=== PATIENT | male | born 1945 | race Caucasian/White ===

== ENCOUNTER 2023-06-02 16:52 | Inpatient (IN) | payer OTHER | END 2023-06-05 16:01 | DRG 854 | LOC: ER 16:52 → PCU 19:49 → SURS 06-03 16:56 | PROVIDERS: ADMIT Internal Medicine | PROC: 047J34Z Dilation of Left External Iliac Artery with Drug-eluting Intraluminal Device, Percutaneous Approach (ICD-10-PCS; principal; 2023-06-02) | PROC: 047L3ZZ Dilation of Left Femoral Artery, Percutaneous Approach (ICD-10-PCS; 2023-06-02) | PROC: B41D1ZZ Fluoroscopy of Aorta and Bilateral Lower Extremity Arteries using Low Osmolar Contrast (ICD-10-PCS; 2023-06-02) | PROC: 0Y6J0Z1 Detachment at Left Lower Leg, High, Open Approach (ICD-10-PCS; 2023-06-03) | PROC: 3E03329 Introduction of Other Anti-infective into Peripheral Vein, Percutaneous Approach (ICD-10-PCS; 2023-06-03) | DX: A41.9 Sepsis, unspecified organism (principal); E11.52 Type 2 diabetes mellitus with diabetic peripheral angiopathy with gangrene; E87.1 Hypo-osmolality and hyponatremia; L03.116 Cellulitis of left lower limb; I70.262 Atherosclerosis of native arteries of extremities with gangrene, left leg; F43.10 Post-traumatic stress disorder, unspecified; E86.1 Hypovolemia; I10 Essential (primary) hypertension; E11.65 Type 2 diabetes mellitus with hyperglycemia; Z20.822 Contact with and (suspected) exposure to COVID-19; E83.39 Other disorders of phosphorus metabolism; E83.42 Hypomagnesemia; E87.6 Hypokalemia; Z87.891 Personal history of nicotine dependence; Z98.890 Other specified postprocedural states; Z86.79 Personal history of other diseases of the circulatory system; Z79.899 Other long term (current) drug therapy; Z79.4 Long term (current) use of insulin; Z71.6 Tobacco abuse counseling ==

== ENCOUNTER 2023-06-25 18:03 | Inpatient (IN) | payer OTHER ==
[~2023-06-25] VITALS: Ht 165.1 cm; Wt 76.7 kg
[2023-06-25 19:40] LABS: BASOPHILS ABSOLUTE AUTO 0.08 K/mm3 (0.00-0.23); BASOPHILS PERCENT AUTO 1 % (0-2); EOSINOPHILS ABSOLUTE AUTO 0.37 K/mm3 (0.00-0.68); EOSINOPHILS PERCENT AUTO 3 % (0-6); Hematocrit 37.6 % (37.0-53.0); Hemoglobin 12.9 g/dL (13.5-17.5); IMMATURE GRAN ABSOLUTE AUTO 0.03 K/mm3 (0.00-0.10); IMMATURE GRAN PERCENT AUTO 0 % (0-1); LYMPHOCYTES ABSOLUTE AUTO 1.33 K/mm3 (0.84-5.20); LYMPHOCYTES PERCENT AUTO 11 % (21-46); MONOCYTES ABSOLUTE AUTO 0.79 K/mm3 (0.16-1.47); MONOCYTES PERCENT AUTO 7 % (4-13); Mean Corpuscular HGB 29.9 pg (26.0-34.0); Mean Corpuscular HGB Conc 34.3 g/dL (31.5-36.5); Mean Corpuscular Volume 87 fL (80-100); Mean Platelet Volume 8.6 fL (9.1-12.4); NEUTROPHILS ABSOLUTE AUTO 9.28 K/mm3 (1.96-9.15); NEUTROPHILS PERCENT AUTO 78 % (41-73); Platelet Count 363 K/mm3 (150-400); RDW Coefficient Variation 13.7 % (11.7-14.2); Red Blood Cell Count 4.31 M/mm3 (4.30-5.90); White Blood Cell Count 11.88 K/mm3 (4.00-11.30)
[2023-06-25 19:59] LABS: Albumin, Blood 2.8 g/dL (3.4-5.0); Albumin/Globulin Ratio 0.6 (0.8-1.8); Bilirubin, Total 0.3 mg/dL (0.1-1.0); Bun/Creatinine Ratio 19.8 (12.0-20.0); Calcium, Blood 9.2 mg/dL (8.5-10.1); Creatinine, Blood 0.76 mg/dL (0.60-1.20); Globulin, Blood 4.6 g/dL (2.2-4.0); Potassium, Blood 4.1 mmol/L (3.5-5.5); Total Protein, Blood 7.4 g/dL (6.4-8.2)
--- NOTE | 2023-06-25 21:31 | NUR ---
PT CHART REVEIWED FOR ADMISSION
[2023-06-25 22:28] VITALS: BP 170/85
[2023-06-26 04:30] VITALS: BP 177/70
[2023-06-26 05:25] LABS: BASOPHILS ABSOLUTE AUTO 0.08 K/mm3 (0.00-0.23); BASOPHILS PERCENT AUTO 1 % (0-2); EOSINOPHILS ABSOLUTE AUTO 0.46 K/mm3 (0.00-0.68); EOSINOPHILS PERCENT AUTO 5 % (0-6); Hematocrit 34.9 % (37.0-53.0); IMMATURE GRAN ABSOLUTE AUTO 0.03 K/mm3 (0.00-0.10); IMMATURE GRAN PERCENT AUTO 0 % (0-1); LYMPHOCYTES ABSOLUTE AUTO 2.02 K/mm3 (0.84-5.20); LYMPHOCYTES PERCENT AUTO 21 % (21-46); MONOCYTES ABSOLUTE AUTO 0.74 K/mm3 (0.16-1.47); MONOCYTES PERCENT AUTO 8 % (4-13); Mean Corpuscular HGB 29.6 pg (26.0-34.0); Mean Corpuscular HGB Conc 34.4 g/dL (31.5-36.5); Mean Corpuscular Volume 86 fL (80-100); Mean Platelet Volume 8.9 fL (9.1-12.4); NEUTROPHILS ABSOLUTE AUTO 6.13 K/mm3 (1.96-9.15); NEUTROPHILS PERCENT AUTO 65 % (41-73); Platelet Count 319 K/mm3 (150-400); RDW Coefficient Variation 13.6 % (11.7-14.2); RDW Standard Deviation 42.5 fL (35.1-46.3); Red Blood Cell Count 4.06 M/mm3 (4.30-5.90); White Blood Cell Count 9.46 K/mm3 (4.00-11.30)
--- NOTE | 2023-06-26 05:29 | NUR ---
PT ADMITTED AFTER 2100 LAST NIGHT, AO, SBA FOR TRANSFERS, USES URINAL INDEPENDENTLY, VSS ON RA. LLE BKA AND CELLULITIS, PENDING I&D TODAY. SKIN IS CLEAR, 2 RN SKIN CHECK WITH MARIANA Zambrano REPORTS HIGH PAIN IN LEG WITH MODERATE PAIN CONTROL FROM 5 MG OXY. UNEVENTFUL NIGHT. NPO SINCE MIDNIGHT. FIRE SAFETY REVIEWED.
[2023-06-26 06:03] LABS: Albumin, Blood 2.5 g/dL (3.4-5.0); Albumin/Globulin Ratio 0.6 (0.8-1.8); Bilirubin, Total 0.4 mg/dL (0.1-1.0); Bun/Creatinine Ratio 19.3 (12.0-20.0); Calcium, Blood 8.6 mg/dL (8.5-10.1); Creatinine, Blood 0.72 mg/dL (0.60-1.20); Globulin, Blood 4.3 g/dL (2.2-4.0); Potassium, Blood 3.8 mmol/L (3.5-5.5); Total Protein, Blood 6.8 g/dL (6.4-8.2)
[2023-06-26 07:40] VITALS: BP 161/73
--- NOTE | 2023-06-26 07:45 | NUR ---
CONTACTED DR. DAILY REED VIA ANSWERING SERVICE TO INFORM REGARDING CONSULTATION ORDER. CALLED AT 07:43 ON 06/26.
--- NOTE | 2023-06-26 13:25 | NUR ---
Per Dr. Varela, surgery cancelled. Lunch tray provided.
[2023-06-26 16:03] VITALS: BP 143/72
--- NOTE | 2023-06-26 16:58 | NUR ---
SHIFT SUMMARY Pt remains A&Ox3 this shift. Able to position self in bed/chair. Min ast needed to transfer to chair from bed. LLE pain managed with po meds. Dressing to stump CDI. Resp even nonlabored on RA. Voiding per urinal. Continue with IV antibx. Will continue to monitor.
[2023-06-26 19:19] VITALS: BP 143/81
--- NOTE | 2023-06-27 03:59 | NUR ---
SHIFT SUMMARY PT A&O X3, PLEASANT AND COOPERATIVE WITH CARE. NO ACUTE CHANGES OVERNIGHT. USES WHEELCHAIR TO MOVE FROM BED TO CHAIR. USES URINAL INDEPENDENTLY. DRESSING TO STUMP IS C/D/I. PT COMPLAINING ABOUT ONLY RECEIVING 1 5MG TAB OF OXYCODONE, STATES THAT HE TAKES 2 AT HOME. SLEPT MOST OF THE NIGHT. BED KEPT IN LOWEST POSTITION, CALL LIGHT WITHIN REACH, CALLS APPROPRIATELY.
[2023-06-27 04:09] VITALS: BP 150/84
[2023-06-27 07:58] VITALS: BP 176/89
[2023-06-27 12:05] LABS: Influenza A, PCR NEGATIVE (NEGATIVE); Influenza B, PCR NEGATIVE (NEGATIVE); Resp Syncytial Virus, PCR NEGATIVE (NEGATIVE); SARS-Cov-2 (COVID-19) PCR, MMC NEGATIVE (NEGATIVE)
[2023-06-27 12:19] VITALS: BP 143/71
--- NOTE | 2023-06-27 15:38 | NUR ---
DISCHARGE SUMMARY PATIENT WITH PAIN TODAY, MEDICATED PER EMAR. AMITA REMOVED BEDSIDE BY DR REED, DR ROONEY ORDERED FENTAL 25MCG IV AT 1455 AND OKAY TO GIVE OXYCODONE 10MG NOW DUE TO PATIENT PAIN LEVEL. PATIENT PICKED UP BY TRANSPORT AT 1515 VIA WHEELCHAIR TRANSPORT TO [facility]. PHONE CALL PLACED TO [facility], NO ANSWER
[2023-06-27] MEDS ORDERED: ATOR40TA PO (17:00)
[2023-06-27] MEDS ORDERED: GABA300 PO (17:00)
[2023-06-27] MEDS ORDERED: ASPI81CH PO (17:00)
[2023-06-27] MEDS ORDERED: INSULIN GL100 UNIT/3 SC (17:01)
[2023-06-27] MEDS ORDERED: LACT PO (17:02)
[2023-06-27] MEDS ORDERED: HUMALOG KW100 UNIT/1 SC (17:02)
[2023-06-27] MEDS ORDERED: OXYC5 PO (17:03)
[2023-06-27] MEDS ORDERED: SULTRIDS PO (17:03)
== END 2023-06-27 15:15 | DRG 564 ==
LOC: ER 18:03 → MEDS 22:00
PROVIDERS: Internal Medicine; Nurse Practitioner Acute Care; Student in an Organized Health Care Education/Training Program; ADMIT Internal Medicine
DX: T87.43 Infection of amputation stump, right lower extremity (principal); A41.9 Sepsis, unspecified organism; R65.20 Severe sepsis without septic shock; L03.116 Cellulitis of left lower limb; E11.51 Type 2 diabetes mellitus with diabetic peripheral angiopathy without gangrene; J44.9 Chronic obstructive pulmonary disease, unspecified; R00.0 Tachycardia, unspecified; Z20.822 Contact with and (suspected) exposure to COVID-19; Z86.79 Personal history of other diseases of the circulatory system; Z89.512 Acquired absence of left leg below knee; Z87.891 Personal history of nicotine dependence; Z79.2 Long term (current) use of antibiotics; Z79.4 Long term (current) use of insulin; Z79.82 Long term (current) use of aspirin; Z79.891 Long term (current) use of opiate analgesic; Z99.3 Dependence on wheelchair; Z79.899 Other long term (current) drug therapy
CPT/HCPCS: 0241U; 36415; 73701; 80053; 80202; 82947; 83605; 85025; 93005; 93010; 96365-59; 96367; 97112; 97162; 97530; 99285-25; A9270; J0696; J1650; J1815; J2543; J3010; J3370; J7030; J7050; Q9967

== ENCOUNTER 2023-07-23 12:50 | Inpatient (IN) | payer OTHER ==
[~2023-07-23] VITALS: Ht 165.1 cm; Wt 75.2 kg
[~2023-07-23 12:50] MED LIST: ASPI81CH PO; ATOR40TA PO; GABA300 PO; HUMALOG KW100 UNIT/1 SC; INSULIN GL100 UNIT/3 SC; LACT PO; OXYC5 PO; SULTRIDS PO
[2023-07-23 14:40] LABS: BASOPHILS ABSOLUTE AUTO 0.09 K/mm3 (0.00-0.23); BASOPHILS PERCENT AUTO 1 % (0-2); EOSINOPHILS ABSOLUTE AUTO 0.28 K/mm3 (0.00-0.68); EOSINOPHILS PERCENT AUTO 2 % (0-6); Hematocrit 44.3 % (37.0-53.0); Hemoglobin 14.8 g/dL (13.5-17.5); IMMATURE GRAN ABSOLUTE AUTO 0.08 K/mm3 (0.00-0.10); IMMATURE GRAN PERCENT AUTO 1 % (0-1); LYMPHOCYTES ABSOLUTE AUTO 1.85 K/mm3 (0.84-5.20); LYMPHOCYTES PERCENT AUTO 15 % (21-46); MONOCYTES ABSOLUTE AUTO 0.85 K/mm3 (0.16-1.47); MONOCYTES PERCENT AUTO 7 % (4-13); Mean Corpuscular HGB 29.6 pg (26.0-34.0); Mean Corpuscular HGB Conc 33.4 g/dL (31.5-36.5); Mean Corpuscular Volume 89 fL (80-100); NEUTROPHILS ABSOLUTE AUTO 9.49 K/mm3 (1.96-9.15); NEUTROPHILS PERCENT AUTO 75 % (41-73); Platelet Count 300 K/mm3 (150-400); RDW Coefficient Variation 13.7 % (11.7-14.2); RDW Standard Deviation 44.3 fL (35.1-46.3); White Blood Cell Count 12.64 K/mm3 (4.00-11.30)
[2023-07-23 14:57] LABS: Albumin, Blood 3.4 g/dL (3.4-5.0); Albumin/Globulin Ratio 0.7 (0.8-1.8); Bilirubin, Total 0.5 mg/dL (0.1-1.0); Bun/Creatinine Ratio 17.7 (12.0-20.0); Calcium, Blood 9.3 mg/dL (8.5-10.1); Creatinine, Blood 0.79 mg/dL (0.60-1.20); Globulin, Blood 4.6 g/dL (2.2-4.0)
[2023-07-23 20:21] VITALS: BP 165/85
[2023-07-23 21:39] VITALS: BP 133/68
--- NOTE | 2023-07-24 01:55 | NUR ---
NEW ORDERS. PT EXPERIENCING BREAKTHROUGH PAIN AFTER PERCOCET. T/C PLACED TO DR. RODRIGUEZ AND NEW ORDERS FOR FENTANYL 25MCG IV Q2PRN RECEIVED.
[2023-07-24 04:43] LABS: BASOPHILS PERCENT AUTO 1 % (0-2); EOSINOPHILS ABSOLUTE AUTO 0.35 K/mm3 (0.00-0.68); EOSINOPHILS PERCENT AUTO 4 % (0-6); Hematocrit 37.6 % (37.0-53.0); Hemoglobin 12.9 g/dL (13.5-17.5); IMMATURE GRAN ABSOLUTE AUTO 0.05 K/mm3 (0.00-0.10); IMMATURE GRAN PERCENT AUTO 1 % (0-1); LYMPHOCYTES ABSOLUTE AUTO 2.34 K/mm3 (0.84-5.20); LYMPHOCYTES PERCENT AUTO 24 % (21-46); MONOCYTES PERCENT AUTO 9 % (4-13); Mean Corpuscular HGB Conc 34.3 g/dL (31.5-36.5); Mean Corpuscular Volume 87 fL (80-100); Mean Platelet Volume 9.2 fL (9.1-12.4); NEUTROPHILS ABSOLUTE AUTO 6.17 K/mm3 (1.96-9.15); NEUTROPHILS PERCENT AUTO 62 % (41-73); Platelet Count 261 K/mm3 (150-400); RDW Coefficient Variation 13.6 % (11.7-14.2); RDW Standard Deviation 43.6 fL (35.1-46.3); White Blood Cell Count 9.91 K/mm3 (4.00-11.30)
[2023-07-24 04:48] LABS: International Normalized Ratio 1.03; Prothrombin Time Results 10.8 Sec (9.7-11.5)
[2023-07-24 04:49] LABS: Bun/Creatinine Ratio 20.9 (12.0-20.0); Calcium, Blood 8.6 mg/dL (8.5-10.1); Creatinine, Blood 0.81 mg/dL (0.60-1.20); Magnesium, Blood 1.5 mg/dL (1.6-2.4); Potassium, Blood 3.7 mmol/L (3.5-5.5)
[2023-07-24 04:50] VITALS: BP 139/69
--- NOTE | 2023-07-24 06:20 | NUR ---
SHIFT SUMMARY NOC. PT ADMITTED TO SURG FLOOR AT 2013 ON 07/23/2023 FROM THE ER. PT ORIENTED TO ROOM AT THAT TIME AND BLOOD CONSENT AND CONTACT SHEET COMPLETED. PT EXPERIENCING PAIN IN LEFT STUMP FROM BKA INFECTION. PT MEDICATED FOR PAIN WITH MINIMAL TO NO RELIEF. NEW ORDERS RECEIVED AND IMPROVED PAIN NOTED. PT RESTED WITH EYES CLOSED DURING THE NIGHT WITH CALL LIGHT IN REACH. PT USING URINAL AT BEDSIDE.
[2023-07-24 07:29] VITALS: BP 143/77
--- NOTE | 2023-07-24 12:16 | NUR ---
"Spiritual Care | Pt. request Pt. is awake in bed and welcomes my visit. Pt. is pleasant. Facilitate a life review. During visit Dr. Vallecillo arrived and welcomed this flat cutter to stay while he looked at the Pts. wound and presented prognosis. Pt. initially displays evidence of being overwhelmed, but eventually verbalized agreement with the plan of care. After Dr. Vallecillo left the flat cutter gave support and affirmed the Pt. understood the plan of care. Facilitated more of a life review and prayed with the Pt. Pt. verbalized gratitude for the spiritual care visit."
--- NOTE | 2023-07-24 12:22 | NUR ---
"Spiritual Care | Pt. request Pt. is awke in bed and is eating lunch when he welcomes my visit. Pt. is pleasant. Pt. does display ocassional memory lapses, but otherwise displays evidence of engagement and awareness. Facilitated a life review and considered matters of roque and belief. Listened with interest and a calming presence. Prayed with Pt. Pt. verbalized gratitude for the spiritual care visit."
[2023-07-24 14:31] VITALS: BP 133/75
--- NOTE | 2023-07-24 15:36 | NUR ---
[facility] CONSULT [facility], PER THEIR OFFICE THEY ARE NOT IN THE OFFICE THURSDAY THROUGH THURSDAY. WILL PLACE CONSULT ON THURSDAY.
--- NOTE | 2023-07-24 18:51 | NUR ---
SHIFT SUMMARY S/P L BKA STUMP INFECTION, A/OX4, VSS, TOLERATING PO, PAIN MANAGED PER EMAR, PLAN TO GO TO SURGERY TOMORROW FOR INFECTION. NO ACUTE EVENTS THIS SHIFT, CALL LIGHT IN REACH.
[2023-07-24 19:36] VITALS: BP 154/72
[2023-07-25] VITALS (15 sets, daily range): BP systolic 120–165; BP diastolic 59–90
[2023-07-25 04:16] LABS: Hematocrit 38.5 % (37.0-53.0); Hemoglobin 13.1 g/dL (13.5-17.5); Mean Corpuscular HGB 30.2 pg (26.0-34.0); Mean Corpuscular Volume 89 fL (80-100); Platelet Count 264 K/mm3 (150-400); RDW Coefficient Variation 13.5 % (11.7-14.2); RDW Standard Deviation 44.1 fL (35.1-46.3); Red Blood Cell Count 4.34 M/mm3 (4.30-5.90); White Blood Cell Count 11.49 K/mm3 (4.00-11.30)
[2023-07-25 05:09] LABS: Calcium, Blood 8.6 mg/dL (8.5-10.1); Creatinine, Blood 0.88 mg/dL (0.60-1.20); Magnesium, Blood 1.8 mg/dL (1.6-2.4); Potassium, Blood 4.1 mmol/L (3.5-5.5)
--- NOTE | 2023-07-25 07:45 | NUR ---
SUMMARY PT PENDING OR TODAY. REMAINS NPO.
--- NOTE | 2023-07-25 10:43 | NUR ---
PRE-OP NOTE PT TO PACU VIA HOSPITAL BED BY JADON BONE. PT A&OX4, BREATHING RA, NO COMPLAINTS. History, Chart, Medications and Allergies reviewed before start of procedure.Patient confirms NPO status and agrees with scheduled surgery. Pre-Op teaching done. Pt verbalizes understanding. PREVIOUS BKA SITE SLIGHTLY BLOOD STAINED. PT SEEN AND CONSENTED BY ANESTHESIA AND SURGEON.
--- NOTE | 2023-07-25 11:16 | NUR ---
07/25/23 1116 Xiomara Kolb PT ON SCHEDULED ANTIBIOTICS PRIOR TO ARRIVAL TO OR.
--- NOTE | 2023-07-25 18:24 | NUR ---
SHIFT SUMMARY PT A&OX4, VSS/RA/CBGS ACHS, VOIDING/URINAL, PAIN MANAGED, REPOSITIONS SELF, YOEL PO, IVF 100 MLS/HR AND ABX PER EMAR. S/P LLE BKA I&D, WOUND VAC, ELEVATED. WILL REPORT TO ONCOMING NOC RN.
[2023-07-26 02:51] VITALS: BP 134/75
[2023-07-26 03:52] LABS: Hematocrit 37.3 % (37.0-53.0); Hemoglobin 12.8 g/dL (13.5-17.5)
[2023-07-26 07:12] VITALS: BP 140/75
--- NOTE | 2023-07-26 08:35 | NUR ---
SUMMARY SLEPT OFF AND ON,WOUND VAC INTACT WITH SX.PERCOCET@ EFFECTIVE FOR PAIN CONTROL.
[2023-07-26 15:25] VITALS: BP 132/55
--- NOTE | 2023-07-26 15:43 | NUR ---
SHIFT SUMMARY PT A&OX4, VSS/RA/CBGS ACHS, VOIDING/URINAL, PAIN MANAGED, REPOSITIONS SELF, YOEL PO, IVF 100 MLS/HR AND ABX PER EMAR. POD1 LLE BKA I&D, WOUND VAC, ELEVATED. WILL REPORT TO ONCOMING NOC RN.
[2023-07-26 19:22] VITALS: BP 133/63
[2023-07-27] VITALS (20 sets, daily range): BP systolic 80–173; BP diastolic 58–88
--- NOTE | 2023-07-27 04:08 | NUR ---
SHIFT SUMMARY POD 2 I&D L CARLOS SO PT A&O X4, CALLS APPROPRIATLEY. PT HAS BEEN NPO SINCE MIDNIGHT. HAS WOUND VAC IN PLACE, SUCTION AT 120. SEROSANGINEOUS FLUID DRAINING. PT ENDORSES SAHRP BURNING PAIN IN LLE, MEDICATED PER EMAR. VOIDING. VSS. NO OTHER CONCERNS AT THIS TIME. CALL LIGHT WITHIN REACH.
[2023-07-27 12:37] LABS: Creatinine, Blood 0.86 mg/dL (0.60-1.20)
[2023-07-27 12:38] LABS: Vancomycin, Trough 22.3 ug/mL (5.0-10.0)
--- NOTE | 2023-07-27 17:43 | NUR ---
SHIFT SUMMARY POD0 I&D #2, A/OX4, VSS, TOLERATING PO, ABLE TO STAND PIVOT TO BSC OR CHAIR, DISCUSSED PERIPHERAL ANGIO TENTATIVELY PLANNED FOR TOMORROW, WILL MAKE HIM NPO AT MIDNIGHT FOR THAT PROCEEDURE. PAIN WELL MANAGED PER EMAR. NO ACUTE EVENTS THIS SHIFT, CALL LIGHT IN REACH.
[2023-07-28 00:26] VITALS: BP 111/54
[2023-07-28 04:37] VITALS: BP 154/76
[2023-07-28 05:02] LABS: Hematocrit 36.1 % (37.0-53.0); Hemoglobin 12.1 g/dL (13.5-17.5); Mean Corpuscular HGB 29.6 pg (26.0-34.0); Mean Corpuscular HGB Conc 33.5 g/dL (31.5-36.5); Mean Corpuscular Volume 88 fL (80-100); Mean Platelet Volume 9.4 fL (9.1-12.4); Platelet Count 242 K/mm3 (150-400); RDW Coefficient Variation 13.8 % (11.7-14.2); RDW Standard Deviation 44.5 fL (35.1-46.3); Red Blood Cell Count 4.09 M/mm3 (4.30-5.90); White Blood Cell Count 12.77 K/mm3 (4.00-11.30)
[2023-07-28 06:05] LABS: Bun/Creatinine Ratio 22.9 (12.0-20.0); Calcium, Blood 8.5 mg/dL (8.5-10.1); Creatinine, Blood 0.87 mg/dL (0.60-1.20); Magnesium, Blood 1.7 mg/dL (1.6-2.4); Potassium, Blood 3.8 mmol/L (3.5-5.5)
--- NOTE | 2023-07-28 06:46 | NUR ---
POD 1 S/P REPEAT I&D OF LEFT STUMP. PT VSS T/O NIGHT. WOUND VAC W/SCANT SS DRNG; FOAM COMPRESSED, SEAL AND SX INTACT. PAIN MGD PER EMAR AND W/ICE PACKS+ELEVATION. PT NPO POST MIDNIGHT FOR PLAN FOR ANGIO TODAY.
[2023-07-28 07:23] VITALS: BP 178/77
--- NOTE | 2023-07-28 10:17 | NUR ---
MORNING MEDS 0900 MEDS HELD DUE TO PATIENT BEING NPO FOR PROCEDURE TODAY. PT C/O INCREASED PAIN T/O THE NIGHT AND THIS AM, IV PAIN MEDS GIVEN WITH NO EFFECT, PER ATTENDING MD IV PAIN MED DOSE REPEATED ONE TIME WITH STILL MINIMAL EFFECT. PT REPORTS SPASMS IN LLE, PO PAIN MED AND SCEDULED BACLOFEN GIVEN WITH SMALL SIP OF WATER.
--- NOTE | 2023-07-28 11:42 | NUR ---
Pt. is awake and sitting up in bed when he welcomes my visit. Pt. is unsettled by the extended periods of being NPO waiting for procedures. Listen with empathy and a calming presence. Facilitate a lengthy discussion regarding both the Pts. health and roque journey. Pt. displays evidence of being comforted by the conversation as well as the presence of someone who will listen. Consider matters of roque and belief. Prayed with pt. Pt. displays evidene of a lightened mood and verbalizes gratitude for the spiritual care visit.
[2023-07-28 14:23] VITALS: BP 167/72
[2023-07-28 19:31] VITALS: BP 109/61
--- NOTE | 2023-07-28 19:54 | NUR ---
SHIFT SUMMARY POD1 L BKA I&D, A/OX4, VSS, TOLERATING PO, PAIN MANAGED, ANGIOGRAM ON HOLD DUE TO RISKS. NO ACUTE EVENTS THIS SHIFT, CALL LIGHT IN REACH.
[2023-07-29 03:16] VITALS: BP 147/78
--- NOTE | 2023-07-29 05:11 | NUR ---
POD 2 OF REPEAT I&D OF LEFT BKA STUMP. PER PROVIDER, PT WILL NOT BE TAKEN TO HAVE ANY FURTHER PROCUDURE PERFORMED AT THIS TIME. PT'S WOUND VAC HAS SUCTION WITH SCANT DRAINAGE. NO ACUTE EVENTS DURING THIS SHIFT. PT COMPLAINING OF SHARP PAIN WITH MOVEMENT OF HIS LEFT BKA. PO/IV PAIN MEDICATION ADMINISTERED THIS SHIFT. PT REPOSITIONING HIMSELF WITH MINIMAL ASSISTANCE FROM STAFF. PLAN FOR WOUND CARE CONSULT TODAY ALONG WITH WOUND VAC CHANGES EVERY THURSDAY, THURSDAY, AND THURSDAY.
[2023-07-29 07:23] VITALS: BP 160/77
[2023-07-29 12:57] LABS: Creatinine, Blood 0.82 mg/dL (0.60-1.20); Vancomycin, Trough 18.5 ug/mL (5.0-10.0)
--- NOTE | 2023-07-29 14:12 | NUR ---
DR. REED AND THIS NURSE JUST CHANGED PATIENTS WOUND VAC. PATIENT TOLERATED IT WELL. WOUND VAC FOAM IS COMPRESSED AND DELIEVERING THERAPY. PATIENT IS LAYING IN BED WITH CALL LIGHT IN REACH AND LEFT STUMP ELEVATED ON PILLOWS.
[2023-07-29 14:14] LABS: SARS-Cov-2 (COVID-19) PCR, MMC NEGATIVE (NEGATIVE)
[2023-07-29 14:23] VITALS: BP 111/63
--- NOTE | 2023-07-29 14:42 | NUR ---
DISCHARGE NOTE: PATIENT IS GOING TO BE TRANSPORTED BACK TO [facility] LATER TONIGHT AT 1800. THIS NURSE GAVE REPORT TO THE [facility] LILLIE GONZALEZ WHO AFTER REPORT HAD NO FURTHER QUESTIONS AT THIS TIME. PAIN IS MANAGED WITH PO PAIN MEDS. DR. REED AND THIS NURSE JUST CHANGED HIS WOUND VAC WITH THE BLACK FOAM COMPRESSED AND DELIVERING THERAPY. HE IS TOLERATING PO INTAKE AND IS VOIDING/HAVING BMS. HIS LEFT STUMP IS ELEVATED ON A PILLOW AND IS C/D/I. PATIENT IS LAYING IN BED WITH PERSONAL ITEMS IN THE ROOM GATHERED AWAITING FOR TRANSPORT TO ARRIVE WHICH WILL BE AT 1800 TONIGHT.
--- NOTE | 2023-07-29 18:27 | NUR ---
TRANSPORT ARRIVED AND IS TAKING THE PATIENT IN HIS OWN WHEELCHAIR. PATIENT IS DRESSED AND HAS PERSONAL ITEMS WITH HIM.
== END 2023-07-29 18:27 | DRG 493 ==
LOC: ER 12:50 → SURS 18:49 → ER 07-24 12:30 → SURS 07-29 18:27
PROVIDERS: Internal Medicine; Nurse Practitioner Acute Care; Orthopaedic Surgery; Physician Assistant; ADMIT Internal Medicine
PROC: 0QBH0ZZ Excision of Left Tibia, Open Approach (ICD-10-PCS; principal; 2023-07-27 15:00)
DX: T87.44 Infection of amputation stump, left lower extremity (principal); E11.52 Type 2 diabetes mellitus with diabetic peripheral angiopathy with gangrene; L03.115 Cellulitis of right lower limb; J44.9 Chronic obstructive pulmonary disease, unspecified; Z20.822 Contact with and (suspected) exposure to COVID-19; B95.62 Methicillin resistant Staphylococcus aureus infection as the cause of diseases classified elsewhere; B96.89 Other specified bacterial agents as the cause of diseases classified elsewhere; M19.90 Unspecified osteoarthritis, unspecified site; I11.0 Hypertensive heart disease with heart failure; I50.9 Heart failure, unspecified; E11.65 Type 2 diabetes mellitus with hyperglycemia; Z79.82 Long term (current) use of aspirin; Z79.4 Long term (current) use of insulin; Z79.891 Long term (current) use of opiate analgesic; Z79.899 Other long term (current) drug therapy; Z89.512 Acquired absence of left leg below knee; Z87.891 Personal history of nicotine dependence; Z98.890 Other specified postprocedural states
CPT/HCPCS: 36415; 80048; 80053; 80202; 82565; 82947; 83735; 85014; 85018; 85025; 85027; 85610; 87070; 87071; 87075; 87077; 87186; 87205; 99284; A9270; J0696; J1100; J1170; J1815; J1885; J2371; J2405; J2704; J2765; J3010; J3370; J3475; J7030; J7050; J7120; U0002

== ENCOUNTER 2025-05-02 12:51 | Day surgery (SDC) | payer OTHER ==
[~2025-05-02] VITALS: Ht 165.1 cm; Wt 81.6 kg
[~2025-05-02 12:51] MED LIST changes: +Balanced Salt Epinephrine Irrigation Solution 500 mL IR SCH; +Moxifloxacin HCL 0.5 MG/0.1 ML 0.4MLSYR RIGHTEYE SCH; +NS 500 ML IV ONE; +Ondansetron 4 MG SoluTab MM PRN; +PHENYLEPHRINE\\TROPICAMIDE\\TETRACAINE OPHTHALMIC DILATING SOLN RIGHTEYE PRN; +Povidone-Iodine 450 DROP/30 ML Solution ONE; +Povidone-Iodine 450 DROP/30 ML Solution RIGHTEYE SCH; +Tetracaine HCl/Pf 0.5% Opth Soln 4 ml ONE
[2025-05-02] MEDS ORDERED: FERSU300 PO (13:43)
[2025-05-02] MEDS ORDERED: TAMS.4ER PO (13:44)
[2025-05-02] MEDS ORDERED: JARDIANCE10 MG PO (13:44)
[2025-05-02] MEDS ORDERED: FURO20 PO (13:44)
[2025-05-02] MEDS ORDERED: METF500 PO (13:45)
[2025-05-02] MEDS ORDERED: TERB250 PO (13:45)
[2025-05-02] MEDS ORDERED: DULO60 PO (13:45)
[2025-05-02] MEDS ORDERED: MAGNESIUM OXID500 MG PO (13:46)
[2025-05-02] MEDS ORDERED: ASCO500 PO (13:46)
[2025-05-02] MEDS ORDERED: BACL10 PO (13:46)
[2025-05-02] MEDS ORDERED: PREG75 PO (13:47)
[2025-05-02] MEDS ORDERED: Calcium Carbon500 MG (13:47)
[2025-05-02] MEDS ORDERED: ACET325 (13:48)
[2025-05-02] MEDS ORDERED: NS 500 ML IV ONE (14:01)
--- NOTE | 2025-05-02 14:02 | NUR ---
05/02/25 1402 Odilon Mcdonald CALL LIGHT WITHIN REACH. EYE DROPS IN AT AROUND [id number]
[2025-05-02] MEDS ORDERED: FentaNYL Citrate 50 MCG/ML 2 ML Injection ONE (14:23)
[2025-05-02] MEDS ORDERED: Midazolam HCl 1MG / ML 2ML Vial ONE (14:24)
[2025-05-02 14:47] VITALS: BP 140/80
--- NOTE | 2025-05-02 15:14 | NUR ---
05/02/25 1514 HerbertYunier castro PT DENIES PAIN AND NAUSEA AT THIS TIME. PT AGREEABLE TO D/C HOME WITH [facility].
== END 2025-05-02 15:15 | disposition home or self-care (01) ==
LOC: ORSCSDS 12:51
PROVIDERS: Student in an Organized Health Care Education/Training Program
PROC: 08RJ3JZ Replacement of Right Lens with Synthetic Substitute, Percutaneous Approach (ICD-10-PCS; principal; 2025-05-02 14:30)
DX: E11.36 Type 2 diabetes mellitus with diabetic cataract (principal); H25.811 Combined forms of age-related cataract, right eye; I73.9 Peripheral vascular disease, unspecified; H40.053 Ocular hypertension, bilateral; F43.10 Post-traumatic stress disorder, unspecified; Z79.84 Long term (current) use of oral hypoglycemic drugs; Z79.82 Long term (current) use of aspirin; Z79.4 Long term (current) use of insulin; Z79.899 Other long term (current) drug therapy
CPT/HCPCS: 82947; J2250; J3010; J7040; V2632